=== PATIENT | female | born 1940 | race Caucasian/White ===

== ENCOUNTER 2019-10-11 13:56 | Emergency (ER) | payer MEDICARE ==
[~2019-10-11] VITALS: Ht 149.9 cm; Wt 90.0 kg
[2019-10-11 14:02] VITALS: BP 139/79
--- NOTE | 2019-10-11 14:16 | NUR ---
PT CHANGED INTO GOWN. EKG DONE. ATTACHED TO ALL MONITORS. PA STUDENT AT BEDSIDE FOR EVAL. CALL LIGHT IN REACH.
[2019-10-11] MEDS ORDERED: SODIUM CHLORIDE FLUSH 10ML SYR IVF ONE (14:30)
[2019-10-11 14:59] LABS: BASOPHILS # (AUTO) 0.05 x10^3/uL (0-0.1); BASOPHILS % (AUTO) 1 % (0-1); EOSINOPHILS % (AUTO) 2 % (1-7); LYMPHOCYTES # (AUTO) 1.05 x10^3/uL (1-3.4); LYMPHOCYTES % (AUTO) 20 % (22-44); MD MORPH REVIEW ONLY; MEAN CORPUSCULAR HEMOGLOBIN 23.3 pg (27.0-34.8); MEAN CORPUSCULAR HGB CONC 31.4 g/dL (32.4-35.8); MEAN CORPUSCULAR VOLUME 74.1 fL (80-100); MEAN PLATELET VOLUME 7.5 fL (7.4-10.4); MONOCYTES # (AUTO) 0.44 x10^3/uL (0.2-0.8); MONOCYTES % (AUTO) 8 % (2-9); NEUTROPHILS # (AUTO) 3.61 x10^3/uL (1.8-6.8); NEUTROPHILS % (AUTO) 69 % (42-75); PLATELET COUNT 319 x10^3/uL (130-400); RED BLOOD COUNT 4.04 x10^6/uL (3.82-5.3); RED CELL DISTRIBUTION WIDTH 18.1 % (9.6-15.2)
[2019-10-11 15:05] LABS: ALANINE AMINOTRANSFERASE 28 U/L (12-78); ALBUMIN 3.2 g/dL (3.4-5.0); ANION GAP 5 mmol/L (5-15); CALCIUM 8.5 mg/dL (8.5-10.1); CHLORIDE 112 mmol/L (98-107); CREATININE 1.07 mg/dL (0.55-1.02)
[2019-10-11 15:10] LABS: ALKALINE PHOSPHATASE 57 U/L (45-117); BILIRUBIN,TOTAL 0.4 mg/dL (0.2-1.0); TOTAL PROTEIN 6.3 g/dL (6.4-8.2); TROPONIN I < 0.015 ng/mL (0.000-0.045)
[2019-10-11 15:32] LABS: ANISOCYTOSIS 1+; MICROCYTOSIS 1+
[2019-10-11 15:33] LABS: POLYCHROMASIA 1+
[2019-10-11 15:36] LABS: <PLATELET ESTIMATE> ADEQUATE; <PLT MORPHOLOGY> NORMAL PLT MORPH
== END 2019-10-11 18:28 | disposition home or self-care (01) ==
LOC: EDBD 13:56 → ED 17:16
DX: D50.9 Iron deficiency anemia, unspecified (principal); R42 Dizziness and giddiness; R55 Syncope and collapse; R07.89 Other chest pain; I10 Essential (primary) hypertension; E11.9 Type 2 diabetes mellitus without complications; M19.90 Unspecified osteoarthritis, unspecified site; R53.1 Weakness; Z86.73 Personal history of transient ischemic attack (TIA), and cerebral infarction without residual deficits
CPT/HCPCS: 36415; 71045; 80053; 84484; 85025; 93005; 99285

== ENCOUNTER 2019-10-16 09:18 | Emergency (ER) | payer MEDICARE ==
[~2019-10-16] VITALS: Ht 149.9 cm; Wt 92.2 kg
--- NOTE | 2019-10-16 09:45 | NUR ---
WHEEL CLEANER::PT TAKEN TO ROOM AT THIS TIME.
--- NOTE | 2019-10-16 10:00 | NUR ---
PT CAME IN CO OF [facility] [place] STOOL AND NAUSEA. PT WAS SEEN HERE 4 DAYS AGO BECAUSE SHE FAINTED IN THE [facility] AND WAS FOUND TO BE ANEMIC. PT DID NOT RECEIVED A BLOOD TRANSFUION. PT DENIES PAIN IN HER ABD. PT DENIES FEELING LIGHT HEADED. VSS. PT RESTING IN [facility]
[2019-10-16] MEDS ORDERED: PANTOPRAZOLE 80 MG in SODIUM CHLORIDE 0.9% 100 ML IV SCH (10:06)
[2019-10-16] MEDS ORDERED: PANTOPRAZOLE 80 MG in SODIUM CHLORIDE 0.9% 50 ML IVPB ONE (10:06)
[2019-10-16] MEDS ORDERED: SODIUM CHLORIDE FLUSH 10ML SYR IVF ONE (10:30)
--- NOTE | 2019-10-16 10:35 | NUR ---
PT MEDICATED PER MAR
[2019-10-16 10:56] LABS: INTERNATIONAL NORMALIZED RATIO 0.99 (0.93-1.1); PROTHROMBIN TIME 10.2 Seconds (9.6-11.5)
[2019-10-16 10:58] LABS: BASOPHILS # (AUTO) 0.05 x10^3/uL (0-0.1); BASOPHILS % (AUTO) 1 % (0-1); EOSINOPHILS # (AUTO) 0.17 x10^3/uL (0-0.4); EOSINOPHILS % (AUTO) 2 % (1-7); LYMPHOCYTES # (AUTO) 1.52 x10^3/uL (1-3.4); LYMPHOCYTES % (AUTO) 21 % (22-44); MD NO; MEAN CORPUSCULAR HEMOGLOBIN 23.1 pg (27.0-34.8); MEAN CORPUSCULAR HGB CONC 30.8 g/dL (32.4-35.8); MEAN CORPUSCULAR VOLUME 74.8 fL (80-100); MEAN PLATELET VOLUME 7.8 fL (7.4-10.4); MONOCYTES % (AUTO) 8 % (2-9); NEUTROPHILS # (AUTO) 4.79 x10^3/uL (1.8-6.8); NEUTROPHILS % (AUTO) 67 % (42-75); PLATELET COUNT 378 x10^3/uL (130-400); RED BLOOD COUNT 4.48 x10^6/uL (3.82-5.3); RED CELL DISTRIBUTION WIDTH 19.2 % (9.6-15.2)
[2019-10-16 11:00] LABS: ALBUMIN 3.7 g/dL (3.4-5.0); ANION GAP 8 mmol/L (5-15); CALCIUM 9.2 mg/dL (8.5-10.1); CHLORIDE 110 mmol/L (98-107)
[2019-10-16 11:07] LABS: ALANINE AMINOTRANSFERASE 27 U/L (12-78); ALKALINE PHOSPHATASE 74 U/L (45-117); BILIRUBIN,TOTAL 0.4 mg/dL (0.2-1.0); CREATININE 1.13 mg/dL (0.55-1.02); TROPONIN I < 0.015 ng/mL (0.000-0.045)
--- NOTE | 2019-10-16 11:09 | NUR ---
ASSUMED CARE OF PT, PLACED ON POWER STATION OPERATOR. VSS. FALL PRECAUTIONS IN PLACE, CALL LIGTH WITHIN REACH.
[2019-10-16 11:53] LABS: MICROSCOPIC NOT IND
--- NOTE | 2019-10-16 12:09 | NUR ---
PT RESTING IN [facility], WITH SON AT BEDSIDE. VSS. CALL LIGHT WITHIN REACH.
[2019-10-16 13:07] VITALS: BP 147/80
--- NOTE | 2019-10-16 14:15 | NUR ---
SON ARRIVED FOR DISCHARGE, PT DC'D WITH SON.
== END 2019-10-16 14:14 | disposition home or self-care (01) ==
LOC: ED 13:50
DX: K92.1 Melena (principal); R04.2 Hemoptysis; R94.31 Abnormal electrocardiogram [ECG] [EKG]; E11.9 Type 2 diabetes mellitus without complications; I10 Essential (primary) hypertension; M19.90 Unspecified osteoarthritis, unspecified site; Z86.73 Personal history of transient ischemic attack (TIA), and cerebral infarction without residual deficits
CPT/HCPCS: 36415; 71045; 80053; 81003; 83605; 84443; 84484; 85025; 85610; 93005; 96365; 96366; 96376; 99285; C9113; 96360; 96361

== ENCOUNTER → 2019-11-19 | Outpatient (CLI) | payer MEDICARE ==
[~2019-11-19] MED LIST: FERR-46 PO; FERR-51 PO; HYDR-3245 PO; IRBE1TAB13 PO; OMEP-110 PO; OMEP20TA62 PO; POLY17PO5 PO
[2019-11-19 13:34] LABS: MEAN CORPUSCULAR HEMOGLOBIN 25.7 pg (27.0-34.8); MEAN CORPUSCULAR HGB CONC 31.7 g/dL (32.4-35.8); MEAN CORPUSCULAR VOLUME 81.1 fL (80-100); MEAN PLATELET VOLUME 8.5 fL (7.4-10.4); PLATELET COUNT 283 x10^3/uL (130-400); RED BLOOD COUNT 5.43 x10^6/uL (3.82-5.3); RED CELL DISTRIBUTION WIDTH 26.2 % (9.6-15.2)
[2019-11-19 13:41] LABS: ALBUMIN 3.6 g/dL (3.4-5.0); ANION GAP 7 mmol/L (5-15); CALCIUM 9.8 mg/dL (8.5-10.1); CHLORIDE 109 mmol/L (98-107)
[2019-11-19 13:45] LABS: ALANINE AMINOTRANSFERASE 37 U/L (12-78); ALKALINE PHOSPHATASE 73 U/L (45-117); BILIRUBIN,TOTAL 0.3 mg/dL (0.2-1.0); TOTAL PROTEIN 7.1 g/dL (6.4-8.2)
[2019-11-19 14:57] LABS: BASOPHILS # (AUTO) 0.04 x10^3/uL (0-0.1); BASOPHILS % (AUTO) 1 % (0-1); EOSINOPHILS # (AUTO) 0.11 x10^3/uL (0-0.4); EOSINOPHILS % (AUTO) 2 % (1-7); LYMPHOCYTES % (AUTO) 25 % (22-44); MD MORPH REVIEW ONLY; MONOCYTES # (AUTO) 0.42 x10^3/uL (0.2-0.8); MONOCYTES % (AUTO) 8 % (2-9); NEUTROPHILS # (AUTO) 3.34 x10^3/uL (1.8-6.8); NEUTROPHILS % (AUTO) 64 % (42-75)
[2019-11-19 15:01] LABS: HYPOCHROMIA 1+; MICROCYTOSIS 1+; OVALOCYTES 1+; POLYCHROMASIA 1+
[2019-11-19 15:02] LABS: <PLATELET ESTIMATE> ADEQUATE; <PLT MORPHOLOGY> NORMAL PLT MORPH
== END | disposition home or self-care (01) ==
LOC: STAR 11:25
PROVIDERS: ATTEND Colon & Rectal Surgery
DX: Z01.812 Encounter for preprocedural laboratory examination (principal); Z20.828 Contact with and (suspected) exposure to other viral communicable diseases
CPT/HCPCS: 36415; 80053; 85025; 87635

== ENCOUNTER 2019-12-07 00:09 | Emergency (ER) | payer MEDICARE ==
[~2019-12-07] VITALS: Ht 149.9 cm; Wt 87.8 kg
--- NOTE | 2019-12-07 01:00 | NUR ---
A&o x4, answering questions appropriately. States new ostomy as of 11/22. Denies pain. Denies blood in ostomy output. States adequate output. Presents to ED for bag change d/t leaking, states she is unable to change bag effectively at home. Teaching provided r/t f/u with GI team for teaching r/t ostomy care. MD at bedside for assessment. No abd pain/tenderness. Denies fever/chills. Denies N/V. Ambulating independently, steady gait
--- NOTE | 2019-12-07 02:16 | NUR ---
Ostomy bag changed by this RN. Teaching provided r/t f/u care
[2019-12-07 04:03] VITALS: BP 135/79
--- NOTE | 2019-12-07 04:04 | NUR ---
Provided pt with cab voucher. Ambulating with cane from home independently, steady gait. Verbalizes understanding r/t f/u with GI tomorrow and need for additional teaching r/t ostomy. Ostomy bag changed by this RN, pt verbalizes understanding.
== END 2019-12-07 04:05 | disposition home or self-care (01) ==
LOC: ED 01:14
DX: R10.31 Right lower quadrant pain (principal); I10 Essential (primary) hypertension; E11.9 Type 2 diabetes mellitus without complications; M19.90 Unspecified osteoarthritis, unspecified site; Z43.3 Encounter for attention to colostomy; Z86.73 Personal history of transient ischemic attack (TIA), and cerebral infarction without residual deficits
CPT/HCPCS: 74022; 99285

== ENCOUNTER 2019-12-12 21:20 | Emergency (ER) | payer MEDICARE ==
[~2019-12-12] VITALS: Ht 149.9 cm; Wt 100.0 kg
--- NOTE | 2019-12-12 23:58 | NUR ---
LATE ENTRY SUMMARY NOTE: PT PLACED ON CARDIAC, BP AND O2 MONITORS IMMEDIATELY UPON ARRIVAL. NADN. PT HAS REMAINED IN BED, IN POSITION OF COMFORT, WILL CALL LIGHT IN REACH AND BEDRAILS UP X2. ERP WAS TO BEDSIDE. OSTOMY BAG REMOVED TO FULLY ASSESS STOMA AND SKIN. AWAITING CONSULT WITH SURGEON.
--- NOTE | 2019-12-13 01:35 | NUR ---
PT APPEARED FAINT UPON WALKING TO D/C. PT PLACED IN WHEELCHAIR. EKG DONE AND ORTHOSTATIC VITAL SIGNS DONE. ERP MADE AWARE. PT BACK TO BED. IV TO BE REESTABLISHED.
[2019-12-13] MEDS ORDERED: SODIUM CHLORIDE 0.9% 1,000ML IVBOLUS ONE (02:00)
[2019-12-13] MEDS ORDERED: SODIUM CHLORIDE FLUSH 10ML SYR IVF ONE (02:00)
--- NOTE | 2019-12-13 02:04 | NUR ---
PT COMPLAINING OF BEING COLD. ORAL TEMP 98.3. PT GIVEN WARM BLANKET. ERP MADE AWARE OF PT'S STATED SUBJECTIVE COMPLAINTS AND THIS RN'S ASSOCIATED SUBJECTIVE ASSESSMENT - SEE PHYSICAL ASSESSMENT. ERP MADE AWARE OF STABLE VS. ERP TO ORDER LABS.
[2019-12-13 02:39] LABS: ALBUMIN 2.8 g/dL (3.4-5.0); ANION GAP 7 mmol/L (5-15); CALCIUM 8.5 mg/dL (8.5-10.1); CHLORIDE 109 mmol/L (98-107); CREATININE 1.02 mg/dL (0.55-1.02)
[2019-12-13 02:47] LABS: BASOPHILS % (AUTO) 2 % (0-1); EOSINOPHILS % (AUTO) 9 % (1-7); LYMPHOCYTES % (AUTO) 29 % (22-44); MEAN CORPUSCULAR HEMOGLOBIN 26.8 pg (27.0-34.8); MEAN CORPUSCULAR HGB CONC 32.5 g/dL (32.4-35.8); MEAN PLATELET VOLUME 7.6 fL (7.4-10.4); MONOCYTES % (AUTO) 10 % (2-9); NEUTROPHILS % (AUTO) 50 % (42-75); PLATELET COUNT 298 x10^3/uL (130-400); RED BLOOD COUNT 4.51 x10^6/uL (3.82-5.3)
[2019-12-13 02:58] LABS: MD NO
[2019-12-13] MEDS ORDERED: POTASSIUM CHLORIDE 20 MEQ TAB.ER.PRT PO ONE (03:30)
[2019-12-13] MEDS ORDERED: POTASSIUM CHLORIDE 20 MEQ TAB.ER.PRT ONE (03:40)
[2019-12-13 03:43] VITALS: BP 140/68
--- NOTE | 2019-12-13 03:58 | NUR ---
PT SELPT FROM TIME OF LAST NOTE ENTRY. UPON D/C, PT MADE STATEMENT THAT SHE FELT MUCH BETTER (NO LONGER FAINT).
== END 2019-12-13 03:55 | disposition home or self-care (01) ==
LOC: ED 22:18
DX: K94.03 Colostomy malfunction (principal); L89.892 Pressure ulcer of other site, stage 2; K94.31 Esophagostomy hemorrhage; R94.31 Abnormal electrocardiogram [ECG] [EKG]; I10 Essential (primary) hypertension; E11.9 Type 2 diabetes mellitus without complications; M19.90 Unspecified osteoarthritis, unspecified site; Z86.73 Personal history of transient ischemic attack (TIA), and cerebral infarction without residual deficits
CPT/HCPCS: 36415; 80048; 82040; 85025; 93005; 99285; J7030

== ENCOUNTER 2019-12-13 10:54 | Outpatient (CLI) | payer MEDICARE | END 2019-12-13 23:59 | disposition home or self-care (01) | LOC: WOUND 10:54 | PROVIDERS: ATTEND Internal Medicine Cardiovascular Disease | DX: Z43.2 Encounter for attention to ileostomy (principal); E11.628 Type 2 diabetes mellitus with other skin complications; I10 Essential (primary) hypertension; M19.90 Unspecified osteoarthritis, unspecified site; M47.9 Spondylosis, unspecified; D50.0 Iron deficiency anemia secondary to blood loss (chronic); M41.9 Scoliosis, unspecified; Z90.710 Acquired absence of both cervix and uterus; Z86.73 Personal history of transient ischemic attack (TIA), and cerebral infarction without residual deficits | CPT/HCPCS: G0463 ==

== ENCOUNTER 2019-12-26 15:51 | Emergency (ER) | payer MEDICARE ==
[~2019-12-26] VITALS: Ht 149.9 cm; Wt 84.1 kg
--- NOTE | 2019-12-26 16:59 | NUR ---
THIS IS A 79 YO F HERE FOR "POTASSIUM CHECK". 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 PT STATES SHE HAS NO NEW COMPLAINTS AT THIS TIME. PT STATES SHE NEEDS REHAB FOR OSTOMY WOUND. "BAG BREAKS EVERYDAY AND I NEED A NURSE". UNA CASILLAS.
[2019-12-26] MEDS ORDERED: SODIUM CHLORIDE FLUSH 10ML SYR IVF ONE (17:00)
[2019-12-26 17:03] VITALS: BP 125/85
--- NOTE | 2019-12-26 17:14 | NUR ---
DR.VAN FERRARA AT BEDSIDE FOR ED EVAL.
[2019-12-26 17:20] LABS: BASOPHILS % (AUTO) 1 % (0-1); EOSINOPHILS % (AUTO) 3 % (1-7); LYMPHOCYTES % (AUTO) 23 % (22-44); MEAN CORPUSCULAR HEMOGLOBIN 27.6 pg (27.0-34.8); MEAN CORPUSCULAR HGB CONC 32.9 g/dL (32.4-35.8); MEAN PLATELET VOLUME 7.4 fL (7.4-10.4); MONOCYTES % (AUTO) 9 % (2-9); NEUTROPHILS % (AUTO) 64 % (42-75); PLATELET COUNT 350 x10^3/uL (130-400); RED BLOOD COUNT 5.09 x10^6/uL (3.82-5.3); RED CELL DISTRIBUTION WIDTH 22.2 % (9.6-15.2)
[2019-12-26 17:27] LABS: ALBUMIN 3.5 g/dL (3.4-5.0); ANION GAP 6 mmol/L (5-15); CALCIUM 9.5 mg/dL (8.5-10.1); CHLORIDE 106 mmol/L (98-107)
[2019-12-26 17:29] LABS: MD NO
[2019-12-26 17:32] LABS: ALANINE AMINOTRANSFERASE 30 U/L (12-78); ALKALINE PHOSPHATASE 76 U/L (45-117); BILIRUBIN,TOTAL 0.4 mg/dL (0.2-1.0)
== END 2019-12-26 18:21 ==
LOC: ED 18:15
DX: E87.6 Hypokalemia (principal); I10 Essential (primary) hypertension; E11.9 Type 2 diabetes mellitus without complications; R94.31 Abnormal electrocardiogram [ECG] [EKG]; Z86.73 Personal history of transient ischemic attack (TIA), and cerebral infarction without residual deficits
CPT/HCPCS: 36415; 80053; 85025; 93005; 99284

== ENCOUNTER → 2020-02-15 | Outpatient (CLI) | payer MEDICARE ==
[2020-02-15 15:06] LABS: ALBUMIN 3.7 g/dL (3.4-5.0); ANION GAP 5 mmol/L (5-15); CALCIUM 9.5 mg/dL (8.5-10.1); CHLORIDE 108 mmol/L (98-107)
[2020-02-15 15:11] LABS: ALANINE AMINOTRANSFERASE 33 U/L (12-78); ALKALINE PHOSPHATASE 76 U/L (45-117); BILIRUBIN,TOTAL 0.7 mg/dL (0.2-1.0); CREATININE 1.09 mg/dL (0.55-1.02)
== END | disposition home or self-care (01) ==
LOC: STAR 13:28
PROVIDERS: ATTEND Colon & Rectal Surgery
DX: Z01.812 Encounter for preprocedural laboratory examination (principal); Z20.828 Contact with and (suspected) exposure to other viral communicable diseases
CPT/HCPCS: 80053; 87635; 93005